=== PATIENT | male | born 1975 | race Caucasian/White ===

== ENCOUNTER 2023-05-25 01:06 | Emergency (ER) | payer OTHER, SELFPAY ==
[2023-05-25 01:10] VITALS: BP 161/80; PULSE 85; RESP 18; TEMP 37.2; O2SAT 96; BMI 27.1
[2023-05-25 01:18] VITALS: PULSE 89; RESP 18; O2SAT 95
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
[2023-05-25 02:48] VITALS: PULSE 78; O2SAT 93
[2023-05-25 04:13] VITALS: BP 141/92; PULSE 90; RESP 14; O2SAT 97
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
[2023-05-25 05:36] VITALS: PULSE 80; O2SAT 98
== END 2023-05-25 05:47 | disposition home or self-care (01) ==
PROVIDERS: Emergency Provider Family Medicine
DX: S43.402A Unspecified sprain of left shoulder joint, initial encounter (principal); M50.322 Other cervical disc degeneration at C5-C6 level; M50.323 Other cervical disc degeneration at C6-C7 level; V43.52XA Car driver injured in collision with other type car in traffic accident, initial encounter
CPT/HCPCS: 72125; 73030; 99284